=== PATIENT | male | born 1990 | race Caucasian/White ===

== ENCOUNTER 2022-02-18 08:54 | Emergency (ER) | payer OTHER ==
[~2022-02-18] VITALS: Ht 175.3 cm; Wt 81.6 kg
[2022-02-18 09:08] VITALS: BP_SYST 142
[2022-02-18] MEDS ORDERED: LIDOCAINE 1% 10 MG/ML, 20 ML MDV INJ ONE (09:15)
[2022-02-18] MEDS ORDERED: BACITRACIN 1 GM OINT TP ONE (09:15)
--- NOTE | 2022-02-18 09:15 | NUR ---
Pt placed in bed #6 coming from work due to c/o having wound on left index finger while using a machine at work. There is an avulsion present with active bleeding. Wound covered with dressing and bleeding has been controlled. Pt is A&Ox4. C/o of wound pain 01/30 non-radiating. NKA. Pt states he has no known medical conditions. VSS. Bed in lowest position.
--- NOTE | 2022-02-18 09:20 | NUR ---
Wound was cleaned with normal saline and betadine. Bleeding is controlled. Suture setup at bedside.
--- NOTE | 2022-02-18 09:25 | NUR ---
X-Ray being done at bedside.
--- NOTE | 2022-02-18 09:33 | NUR ---
ER at bedside examining patient.
--- NOTE | 2022-02-18 09:50 | NUR ---
Dr. Gonzalez placed 2 stitches on pt. pt has no c/o. Cleaned wound again and placed dressing over wound. Pt is A&Ox4. VSS.
--- NOTE | 2022-02-18 09:55 | NUR ---
Pt filled out workers comp paperwork.
[2022-02-18 09:57] VITALS: BP_SYST 124
--- NOTE | 2022-02-18 09:57 | NUR ---
Patient given written and verbal discharge instructions and verbalizes understanding. ER MD discussed with patient the results and treatment provided. Patient in stable condition. ID arm band removed. Patient educated on pain management and to follow up with PMD. Pain Scale 0/10. Opportunity for questions provided and answered. Medication side effect fact sheet provided.
== END 2022-02-18 09:57 | disposition home or self-care (01) ==
LOC: SED 08:54
DX: S61.211A Laceration without foreign body of left index finger without damage to nail, initial encounter (principal); W29.8XXA Contact with other powered hand tools and household machinery, initial encounter; Y93.89 Activity, other specified; Y92.89 Other specified places as the place of occurrence of the external cause; Y99.8 Other external cause status
CPT/HCPCS: 73140-TC; 99283